=== PATIENT | male | born 2000 | race Caucasian/White ===

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

== ENCOUNTER 2020-04-04 22:52 | Emergency (ER) | payer SELFPAY | END 2020-04-04 23:36 | disposition home or self-care (01) | LOC: ERS 22:52 | DX: R11.2 Nausea with vomiting, unspecified (principal); K21.9 Gastro-esophageal reflux disease without esophagitis; J45.909 Unspecified asthma, uncomplicated; F90.9 Attention-deficit hyperactivity disorder, unspecified type; F17.210 Nicotine dependence, cigarettes, uncomplicated | CPT/HCPCS: 99284 ==

== ENCOUNTER 2022-02-06 07:39 | Emergency (ER) | payer SELFPAY | END 2022-02-06 09:37 | disposition home or self-care (01) | LOC: ERS 07:39 | DX: S39.011A Strain of muscle, fascia and tendon of abdomen, initial encounter (principal); N50.812 Left testicular pain; F17.290 Nicotine dependence, other tobacco product, uncomplicated; X58.XXXA Exposure to other specified factors, initial encounter | CPT/HCPCS: 76870; 93976 ==